=== PATIENT | male | born 1980 | race Two or more races ===

== ENCOUNTER 2017-01-24 05:54 | Emergency (ER) | payer OTHER ==
[~2017-01-24] VITALS: Ht 175.3 cm; Wt 90.7 kg
[2017-01-24] MEDS ORDERED: NKM (06:02)
[2017-01-24 06:05] VITALS: BP 126/79
--- NOTE | 2017-01-24 06:37 | Emergency Room Report ---
History of Present Illness General Chief Complaint: Lower Extremity Injury Source: Patient Present Illness HPI 36 YOM presents with pain to second toe on right foot, injured at work by machine. Patient was wearing sneakers at the time. Denies open wound, bleeding. Denies previous injury to toe. Pain worse with movement. Allergies: Coded Allergies: No Known Allergies (Unverified , 01/24/17) Patient History Past Medical History: none Past Surgical History: none Pertinent Family History: none Social History: Denies: alcohol use, drug use, smoking Immunizations: UTD Reviewed Nursing Documentation: PMH: Agreed, PSxH: Agreed Nursing Documentation-PMH Past Medical History: No Stated History Review of Systems All Other Systems: negative except mentioned in HPI Physical Exam Vital Signs Date Time Temp Pulse Resp B/P Pulse Ox O2 Delivery O2 Flow Rate FiO2 01/24/17 05:57 98.1 81 18 126/79 96 Room Air Sp02 EP Interpretation: reviewed, normal General Appearance: normal inspection, well appearing, no apparent distress, alert Head: atraumatic ENT: normal ENT inspection, hearing grossly normal, normal voice Neck: normal inspection, full range of motion, supple, no bony tend Respiratory: normal inspection, lungs clear, normal breath sounds, no respiratory distress, no retraction, no wheezing Cardiovascular #1: regular rate, rhythm, no edema Gastrointestinal: normal inspection, normal bowel sounds, non tender, soft, no guarding, no hernia Genitourinary: no CVA tenderness Musculoskeletal: other - Right foot: no obvious traum to right 2nd toe. Full ROM. Mild ttp to distal phalanx Neurologic: normal inspection, alert, oriented x3, responsive, foot and ankle surgeon III-XII nml as tested, speech normal Psychiatric: normal inspection, judgement/insight normal, mood/affect normal Skin: normal inspection, normal color, no rash Lymphatic: normal inspection Medical Decision Making Diagnostic Impression: Primary Impression: Crushing injury of second toe, right Qualified Codes: S97.121A - Crushing injury of right lesser toe(s), initial encounter ER Course Xray of foot negative for acute injury on ED review Advised CLIFTON CRUZ followup DC home Other X-Ray Diagnostic Results Other X-Ray Diagnostic Results : X-Ray Ordered: Right foot EP Interpretation: Yes Findings: no fractures, no dislocation, no soft tissue swelling Number of Views: 3 Last Vital Signs Date Time Temp Pulse Resp B/P Pulse Ox O2 Delivery O2 Flow Rate FiO2 01/24/17 05:57 98.1 81 18 126/79 96 Room Air Status: improved Disposition: HOME, SELF-CARE Scripts Ibuprofen* (MOTRIN*) 800 Mg Tablet 800 MG ORAL THREE TIMES A DAY, #30 TAB 0 Refills Prov: MICHELLE MAXWELL M.D. 01/24/17 MICHELLE MAXWELL M.D. Jan 24, 2017 06:37
[2017-01-24] MEDS ORDERED: IBUPROFEN800 MG ORAL (06:55)
[2017-01-24 07:00] VITALS: BP 126/79
--- NOTE | 2017-01-24 09:43 | Diagnostic Imaging Report ---
Indication: PAIN Technique: XRAY FOOT MIN 3V RIGHT Comparison: None. Findings: The osseous structures are intact. There is no fracture or destruction. The visualized joints are normal. The soft tissues are unremarkable. Impression: Normal.
== END 2017-01-24 07:00 | disposition home or self-care (01) ==
LOC: EMR 06:30
DX: S97.121A Crushing injury of right lesser toe(s), initial encounter (principal); W22.8XXA Striking against or struck by other objects, initial encounter; Y92.512 Supermarket, store or market as the place of occurrence of the external cause; Y99.0 Civilian activity done for income or pay
CPT/HCPCS: 99283